=== PATIENT | female | born 1970 | race Caucasian/White ===

== ENCOUNTER 2024-04-04 08:15 | Day surgery (SDC) | payer OTHER, SELFPAY ==
[2024-03-15 11:21] VITALS: BMI 33.0
[2024-03-17 14:22] VITALS: BMI 32.3
--- NOTE | 2024-03-29 10:07 | PM.HPGS ---
History of Present Illness History of Present Illness Consent: Risks, benefits, and alternatives have been discussed and questions answered. Patient agrees to proceed with procedure. Chief complaint: Neoplasm screening Narrative: Naida Ramachandran is a 53 year old female Who was referred for colon cancer screening. Review of Systems Review of Systems: All systems reviewed & are unremarkable except as noted in HPI and below PMFSH Past Medical History Medical History Hormone replacement therapy HTN (hypertension) Surgical History Surgical History History of back surgery History of lumpectomy History of robot-assisted laparoscopic hysterectomy History of surgery on arm S/P foot surgery Family History Family History Father Hypertension Grandparent Family history of malignant neoplasm of breast in first degree relative Social History Social History Smoking status: Former smoker Tobacco type: cigarettes Smoking end date: 11/02/04 Alcohol intake: current Drinks per week: 15 Substance use type: does not use Living arrangements: with family Spiritual care concerns: No Meds Home Medications and Allergies Home Medications Medication Instructions Recorded Confirmed Type amlodipine 5 mg tablet 5 mg PO DAILY 11/11/21 04/04/24 History hydrochlorothiazide 12.5 mg tablet 12.5 mg PO DAILY 11/11/21 04/04/24 History progesterone micronized 100 mg 100 mg PO QAM 11/11/21 04/04/24 History capsule thyroid (pork) 60 mg tablet (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 PO DAILY 11/11/21 04/04/24 History Thyroid) testosterone estrogen pellet See Rx Instructions .Route .COMPLEX 03/02/24 04/04/24 History vitamin B complex 1 cap PO DAILY 03/17/24 04/04/24 History Allergies Allergy/AdvReac Type Severity Reaction Status Date / Time No Known Allergies Allergy Verified 04/04/24 09:08 Exam Resp: Auscultation: clear to auscultation bilaterally Cardio: Rate: regular rate Rhythm: regular rhythm GI: GI Palp: Yes Soft to palpation and No Tenderness to palpation present (GI) Assessment and Plan Assessment and plan (1) Colon cancer screening: Code(s): Z12.11 - Encounter for screening for malignant neoplasm of colon Status: Acute Assessment and Plan: Colonoscopy with possible biopsy or polypectomy or cautery or injection of substances. Plan Colonoscopy with possible biopsy or polypectomy or cautery or injection of substances.
[2024-04-04 09:09] VITALS: BP 146/90; PULSE 80; RESP 18; TEMP 37.4; O2SAT 100
[2024-04-04] MEDS: LACTATED RINGERS 1,000 ML 150 ML IV CONT (09:11)
--- NOTE | 2024-04-04 09:15 | P.PNAN_ITS ---
Anes - Initial Pre Proc Eval Procedure: Operation Date: 04/04/24 10:30 Proposed Procedures p Screening Colonoscopy - Jovanni Zuniga MD Date/Time: 04/04/24 09:15 Surgeon: Jovanni Zuniga MD Pre Op Diagnosis: Neoplasm screening Patient Data Age: 53 Gender: F Height: 1.65 m Weight: 88 kg Last Vital Signs Temp 37.4 C 04/04/24 09:09 Pulse 80 04/04/24 09:09 Resp 18 04/04/24 09:09 BP 146/90 H 04/04/24 09:09 Pulse Ox 100 04/04/24 09:09 O2 Del Method Room Air 04/04/24 09:09 Allergies Allergy/AdvReac Type Severity Reaction Status Date / Time No Known Allergies Allergy Verified 04/04/24 09:08 Home Medications Medication Instructions Recorded Confirmed Type amlodipine 5 mg tablet 5 mg PO DAILY 11/11/21 04/04/24 History hydrochlorothiazide 12.5 mg tablet 12.5 mg PO DAILY 11/11/21 04/04/24 History progesterone micronized 100 mg 100 mg PO QAM 11/11/21 04/04/24 History capsule thyroid (pork) 60 mg tablet (SALES REPRESENTATIVE JEWELRY 60 mg PO DAILY 11/11/21 04/04/24 History Thyroid) testosterone estrogen pellet See Rx Instructions .Route .COMPLEX 03/02/24 04/04/24 History vitamin B complex 1 cap PO DAILY 03/17/24 04/04/24 History Patient hx anesthesia problems: none Family hx anesthesia problems: none Results Review: All pre-operative results and documents have been reviewed as part of the pre-operative evaluation. [facility] Past Medical History Medical History (Updated 04/04/24 @ 09:15 by Ty Perrin MD) Hormone replacement therapy HTN (hypertension) Surgical History Surgical History History of back surgery History of lumpectomy History of robot-assisted laparoscopic hysterectomy History of surgery on arm S/P foot surgery Family History Family History Father Hypertension Grandparent Family history of malignant neoplasm of breast in first degree relative Social History Social History (Updated 04/04/24 @ 09:15 by Ty Perrin MD) Smoking status: Former smoker Tobacco type: cigarettes Smoking end date: 11/02/04 Alcohol intake: current Drinks per week: 15 Substance use type: does not use Living arrangements: with family Spiritual care concerns: No Anes - Eval Final PreProcedure Day of Procedure 04/04/24 09:15 Patient weight: obese Heart: regular rate and rhythm Lungs: clear to auscultation Airway: Mallampati scale class II Neurological: alert and oriented Last oral intake: >/= 8 hours ASA classification: II Emergent: no Anesthetic plan: proceed Anesthesia type and monitoring: general GIVS and standard monitoring Results Review: All pre-operative results and documents have been reviewed as part of the pre- operative evaluation. Informed Consent: The patient's anesthetic plan and its attendant risks and benefits were discussed with the patient/family/POA. Questions were solicited and answers provided to the satisfaction of the patient/family/POA.
[2024-04-04] MEDS: AMPICILLIN 2 GM/NS 100 ML 2 GM/100 ML BAG IVPB (09:25)
[2024-04-04 11:01] VITALS: BP 117/84; PULSE 69; RESP 15; O2SAT 100
[2024-04-04 11:11] VITALS: BP 138/82; PULSE 68; RESP 14; O2SAT 100
[2024-04-04 11:21] VITALS: BP 130/71; PULSE 66; RESP 16; O2SAT 100
--- NOTE | 2024-04-04 11:44 | WPDANESPN ---
Anes - Prog Note Post-Op Date/Time: 04/04/24 11:44 Cardiovascular status: normal Respiratory status: normal Airway patency: baseline Mental status: baseline Post-Op hydration status: normal Vital Signs: Last Vital Signs Temp 37.4 C 04/04/24 09:09 Pulse 66 04/04/24 11:21 Resp 16 04/04/24 11:21 BP 130/71 04/04/24 11:21 Pulse Ox 100 04/04/24 11:21 O2 Del Method Room Air 04/04/24 11:21 Pain Score (VAS): 0/10 I/O: Intake & Output 04/03/24 04/04/24 04/04/24 23:59 07:59 15:59 Intake Total 600 Balance 600 Patient Feedback: Patient satisfied with anesthetic care.
== END 2024-04-04 11:24 | disposition home or self-care (01) ==
PROVIDERS: PCP Family Medicine; Visit Provider Internal Medicine Gastroenterology
PROC: 0DJD8ZZ Inspection of Lower Intestinal Tract, Via Natural or Artificial Opening Endoscopic (ICD-10-PCS; CPT 45378; principal; 2024-04-04 10:30)
DX: Z12.11 Encounter for screening for malignant neoplasm of colon (principal); D12.5 Benign neoplasm of sigmoid colon; K57.30 Diverticulosis of large intestine without perforation or abscess without bleeding; Z80.0 Family history of malignant neoplasm of digestive organs
CPT/HCPCS: 45385

== ENCOUNTER 2024-04-04 14:13 | Outpatient (NON) | payer OTHER, SELFPAY | END 2024-04-04 14:14 | disposition home or self-care (01) | LOC: ANHLAB 04-05 14:15 | PROVIDERS: PCP Family Medicine; Visit Provider Internal Medicine Gastroenterology | DX: Z12.11 Encounter for screening for malignant neoplasm of colon (principal); D12.5 Benign neoplasm of sigmoid colon | CPT/HCPCS: 88305 ==